=== PATIENT | male | born 1975 | race Hispanic/Latino ===

== ENCOUNTER 2018-08-17 10:26 | Emergency (ER) | payer OTHER ==
--- NOTE | 2018-08-17 12:28 | ED PDOC ---
HPI: Skin/Bite Injury Time Seen by Provider: 08/17/18 11:41 Chief Complaint (Nursing): Wound Check Chief Complaint (Provider): skin infection History Per: Patient History/Exam Limitations: no limitations Additional Complaint(s): 43 y/o M with no significant PMH who presents with skin redness. Pt states that he had a tattoo done on his left arm one week ago and has been using antibiotic soap and A&D ointment as advised. This morning, he began noticing redness at the upper forearm with yellow liquid drainage. Denies fever, chills, night sweats. Past Medical History Reviewed: Historical Data, Nursing Documentation, Vital Signs Vital Signs: Last Vital Signs Temp 97 F L 08/17/18 10:44 Pulse 79 08/17/18 10:44 Resp 17 08/17/18 10:44 BP 148/89 08/17/18 10:44 Pulse Ox 98 08/17/18 10:44 - Medical History PMH: No Chronic Diseases - Family History Family History: States: Unknown Family Hx - Immunization History Hx Tetanus Toxoid Vaccination: No Hx Influenza Vaccination: No Hx Pneumococcal Vaccination: No - Home Medications Home Medications: Ambulatory Orders Medication Instructions Recorded Cephalexin [Keflex] 500 mg PO QID 5 Days capsule 08/17/18 - Allergies Allergies/Adverse Reactions: Allergies Allergy/AdvReac Type Severity Reaction Status Date / Time No Known Allergies Allergy Verified 08/17/18 10:44 Review of Systems Constitutional: Negative for: Fever, Chills Skin: Positive for: Rash Physical Exam - Reviewed Nursing Documentation Reviewed: Yes Vital Signs Reviewed: Yes - Physical Exam Extremity: Positive for: Other (left upper anterior forearm with macular erythema approx 4cm and dry serous drainage. No pus, fluctuance or induration noted. ) Neurological/Psych: Positive for: Awake, Alert, Oriented - ECG O2 Sat by Pulse Oximetry: 98 Disposition - Clinical Impression Clinical Impression: Cellulitis - Patient ED Disposition Is Patient to be Admitted: No - Disposition Referrals: [facility] [Outside] Disposition: Routine/Home Disposition Time: 12:45 Condition: STABLE Additional Instructions: Follow up with primary care doctor for routine care. Take full course of antibiotics as prescribed. Return to ER if you develop fevers, chills, night sweats or pus drainage from wound. Prescriptions: Cephalexin [Keflex] 500 mg PO QID 5 Days capsule Instructions: Cellulitis (Skin Infection), Adult (DC) Forms: [facility] (Sammarinese) Print Language: VIETNAMESE
[2018-08-17] MEDS ORDERED: Cephalexin Susp 250 MG/5 ML PO STA (12:45)
[2018-08-17 13:00] VITALS: BP 132/70; PULSE 77; RESP 18; TEMP 98
[2018-08-17 23:04] VITALS: O2SAT 98
== END 2018-08-17 12:58 | disposition home or self-care (01) ==
LOC: H.ER 10:26
DX: L08.9 Local infection of the skin and subcutaneous tissue, unspecified (principal)